=== PATIENT | female | born 2000 | race Two or more races ===

== ENCOUNTER → 2025-05-15 | Emergency (ER) | payer OTHER ==
[~2025-05-15] VITALS: Ht 162.6 cm; Wt 90.7 kg
[~2025-05-15] MED LIST: ACETAMINOPHEN 500 MG GEL..CAP PO ONE; CETIRIZINE HCL 5 MG/5 ML ML PO ONE; CETIRIZINE HCL 5MG/5ML BLIST.PACK PO ONE; ONDANSETRON HCL 2 MG/ML VIAL IM ONE; ONDANSETRON HCL 2 MG/ML VIAL ONE; PEPCID AC20 MG PO; PROBIOTIC1 EAC2 PO; ZOFRAN8 MG PO; ZYRTEC10 MG PO
[2025-05-15 19:21] LABS: BASO % 0.4 % (0.1-1.2); EOS # 0.17 (0.04-0.54); EOS % 1.4 % (0.7-7.0); LYMPH # 2.67 (1.18-3.74); LYMPH % 22.2 % (19.3-53.1); MEAN PLATELET VOLUME 9.80 fl (9.4-12.4); MONO # 0.71 (0.24-0.82); MONO % 5.9 % (4.7-12.5); NEUT # 8.40 (1.56-6.13); NEUT % 69.9 % (34.0-71.1); RED CELL DISTRIBUTION WIDTH 12.3 % (11.6-14.4)
[2025-05-15 19:51] LABS: COVID-19 AG NEGATIVE (NEGATIVE)
== END | disposition home or self-care (01) ==
LOC: ER 16:57
PROVIDERS: General Practice
DX: O26.891 Other specified pregnancy related conditions, first trimester (principal); J00 Acute nasopharyngitis [common cold]; Z3A.01 Less than 8 weeks gestation of pregnancy; Z20.822 Contact with and (suspected) exposure to COVID-19